=== PATIENT | male | born 1940 | race Caucasian/White ===

== ENCOUNTER 2018-01-13 13:01 | Observation (INO) ==
--- NOTE | 2018-01-13 14:28 | Emergency Department Note ---
Disposition Clinical Impression: Jaundice Disposition: Admitted As Inpatient Condition: Fair Time of Disposition: 15:44 General Adult HPI - General Chief complaint: ED Abdominal Pain Stated complaint: Jaundice Time Seen by Provider: 01/13/18 13:44 Source: patient, family Mode of arrival: ambulatory Limitations: no limitations Nursing Notes Reviewed: Yes Vital Signs Reviewed: Yes - History of Present Illness HPI Narrative: 77yo male with past medical history of hypertension hyperlipidemia presented to [facility] complaining of itching and jaundice. Reported that he has been itching and jaundiced for about a week. He went to [facility] on 01/10/2018 where they tested for hepatitis and and they discharged him to follow up with PCP. He then went back today and a CT demonstrated no biliary obstruction or liver mass, gallbladder was collapsed limiting the assessment, minimal haziness without stones. He was at the urgent care when they recommended that he immediately go to [facility] for concerns of biliary stone. He noted darker orange colored urine and more pale stool for about 2 months. He denies fever, chills, abdominal pain chest pain, shortness of breath, nausea, vomiting, dysuria. He denies alcohol use. Pain Scale: 0 - Related Data Allergies Allergy/AdvReac Type Severity Reaction Status Date / Time No Known Allergies Allergy Verified 01/13/18 13:53 All systems ED: reviewed and negative except as stated. Review of Systems: As Per HPI Constitutional: Denies: fever, chills, weakness Eyes: Denies: vision change Cardiovascular: Denies: chest pain, palpitations Respiratory: Denies: cough, dyspnea, wheezes Gastrointestinal: Denies: abdominal pain, nausea, vomiting, diarrhea, hematemesis, melena, hematochezia Genitourinary: Reports: other (Dark Boone urine) Musculoskeletal: Denies: back pain Integumentary: Reports: lesions (Excoriated lesions on anterior chest and bilateral shoulders), pruritus Neurological: Denies: headache, weakness, numbness Psychiatric: Denies: anxiety Endocrine: Denies: fatigue Hematological/Lymphatic: Denies: easy bleeding Past Medical History - Past Medical History Attestation: Yes The following information was validated with the patient. Source: patient Medical history: Reports: hyperlipidemia, hypertension Surgical history: Reports: appendectomy Psychiatric history: Reports: no psych history - Social History Smoking Status: Former smoker Smokeless Tobacco Status: No Alcohol use: Reports: none Drug use: Reports: none Physical Exam - General Limitations: no limitations General appearance: alert, in no apparent distress - Head Head exam: atraumatic, normocephalic - Eye Eye exam: Present: normal appearance - Neck Neck exam: Present: normal inspection - Chest Chest inspection: Present: other (Excoriated lesions on anterior chest) - Respiratory Respiratory exam: Present: normal lung sounds bilaterally. Absent: respiratory distress, wheezes - Cardiovascular Cardiovascular exam: Present: regular rate, normal rhythm - Abdominal Exam Abdominal exam: Present: soft, Non-Tender, normal bowel sounds. Absent: guarding, rebound - Extremities Exam Extremities exam: Present: normal inspection. Absent: tenderness - Neurological Exam Neurological exam: Present: alert, oriented X3 - Psychiatric Psychiatric exam: Present: normal affect, normal mood - Skin Skin exam: Present: dry, intact, other (Excoriated lesions on anterior chest and bilateral shoulders) Course Course Narrative: 77yo male with past medical history of hypertension hyperlipidemia presented to [facility] complaining of itching and jaundice. He has had the itching and jaundice for a week now. He has noticed paler stool and darker urine for about a couple months. Denies fever, chills, abdominal pain, chest pain, shortness of breath, nausea, vomiting. He has been seeing evaluated at [facility] where CT demonstrated no biliary obstruction or stones in the gallbladder, however they recommended that he come to [facility] due to continue concerns of biliary obstruction. Differential includes common bile duct obstruction, cholangitis, hepatitis, primary sclerosing cholangitis. Will order a CBC, CMP, lipase, ammonia, hepatic panel, urinalysis. Will consult G.I. once labs results. Vital Signs Temperature 97.7 F 01/13/18 13:06 Pulse Rate 73 01/13/18 13:06 Respiratory Rate 16 01/13/18 13:06 Blood Pressure 141/74 01/13/18 13:06 O2 Sat by Pulse Oximetry 97 01/13/18 13:06 Temperature 97.7 F 01/13/18 13:48 Pulse Rate 73 01/13/18 13:48 Respiratory Rate 16 01/13/18 13:48 Blood Pressure 141/74 01/13/18 13:48 O2 Sat by Pulse Oximetry 97 01/13/18 13:48 Oxygen Delivery Oxygen Delivery Room Air Medical Decision Making - MDM Narrative Medical decision making narrative: 77yo male with past medical history of hypertension hyperlipidemia presented to [facility] complaining of itching and jaundice. Reported that he has been itching and jaundiced for about a week. He went to [facility] on 01/10/2018 where they tested for hepatitis and and they discharged him to follow up with PCP. He then went back today and a CT demonstrated no biliary obstruction or liver mass, gallbladder was collapsed limiting the assessment, minimal haziness without stones. He was at the urgent care when they recommended that he immediately go to [facility] for concerns of biliary stone. He noted darker orange colored urine and more pale stool for about 2 months. He denies fever, chills, abdominal pain chest pain, shortness of breath, nausea, vomiting, dysuria. He denies alcohol use. WBC within normal limits. Total Anirudh, direct Bili, indirect Bilirubin, alkaline phosphatase, AST, ALT, lipase all elevated. Moderate bilirubin and urinalysis. Will give him Solu-Medrol for symptomatic relief. Dr. Joseph of gastroenterology was consulted and recommended MRCP. He believes this to be cholestasis. He asked that we admit to the hospitalist for the MRCP and further evaluation. The hospitalist Dr. Inman was contacted and accepted admission. The patient and family were agreeable to the plan. - Medical Records Medical records reviewed: Yes I reviewed the patient's medical records. - Lab Data Lab results reviewed: Yes I reviewed the patient's lab results. - Radiology Data Radiology results reviewed: Yes I reviewed the patient's radiology results. Critical Care Time Critical Care Time: No
[2018-01-13 14:47] LABS: Bilirubin,Urine Moderate (Negative); Blood,Urine Negative (Negative); Clarity,Urine Cloudy (Clear); Color,Urine Dark Yellow (Yellow); Glucose,Urine (UA) Normal (Normal); Ketones,Urine Negative (Negative); Leukocyte Esterase,Urine Negative (Negative); Nitrite,Urine Negative (Negative); Protein,Urine Negative (Neg-Trace); Specific Gravity,Urine 1.012 (1.010-1.025); Urobilinogen,Urine Normal (Normal)
[2018-01-13 14:51] LABS: Bacteria,Urine None Seen per hpf (None-Few); Hyaline Casts,Urine None Seen per lpf (None-Few); RBC,Urine 0-3 per hpf (0-3); Squamous Epithelial Cell,Urine None Seen per lpf (None-Few); WBC,Urine 0-3 per hpf (0-3)
[2018-01-13 14:59] LABS: Basophils % 0.8 %; Eosinophils # 0.2 K/mcL (0.0-0.6); Eosinophils % 3.5 %; Hemoglobin 13.7 g/dL (12.9-16.9); Immature Granulocytes % 0.6 % (0-4); Lymphocytes # 1.3 K/mcL (0.6-4.6); Lymphocytes % 24.4 %; Mean Corpuscular HGB Conc 33.4 g/dL (31.6-35.5); Mean Corpuscular Volume 86.7 fL (83.0-100.0); Mean Platelet Volume 12.3 fL (9.4-12.4); Monocytes # 0.7 K/mcL (0.0-1.3); Monocytes % 14.1 %; Neutrophils # 2.9 K/mcL (1.6-8.9); Platelet Count 202 K/mcL (140-400); Red Blood Count 4.73 M/mcL (4.19-5.50); Red Cell Distribution Width 16.8 % (11.5-14.5); Segmented Neutrophils % 56.6 %
[2018-01-13 15:09] LABS: Prothrombin Time 10.7 Seconds (9.4-12.1)
[2018-01-13 15:16] LABS: Albumin/Globulin Ratio 1.4 (1.1-2.2); Bilirubin,Direct 8.6 mg/dL (0.0-0.2); Bilirubin,Indirect 4.2 mg/dL (0.0-1.2); Bilirubin,Total 12.8 mg/dL (0.3-1.0); Calcium 9.4 mg/dL (8.6-10.3); Globulin 2.8 g/dL (2.4-3.5); Potassium 3.7 mEq/L (3.5-5.1); Total Protein 6.8 g/dL (6.4-8.9)
[2018-01-13 15:18] LABS: Amorphous Sediment,Urine Few (Few)
--- NOTE | 2018-01-13 15:43 | Emergency Department Note ---
Disposition Clinical Impression: Cholestasis, Hyperbilirubinemia, Jaundice Disposition: Admitted As Inpatient Condition: Fair Forms: ED Satisfaction Letter, Work/School Release General Adult HPI - General Chief complaint: ED Abdominal Pain Stated complaint: Jaundice Time Seen by Provider: 01/13/18 13:44 Source: patient, family Mode of arrival: ambulatory Limitations: no limitations - History of Present Illness Pain Scale: 0 - Related Data Allergies Allergy/AdvReac Type Severity Reaction Status Date / Time No Known Allergies Allergy Verified 01/13/18 13:53 Constitutional: Denies: fever, chills, weakness Eyes: Denies: vision change Cardiovascular: Denies: chest pain, palpitations Respiratory: Denies: cough, dyspnea, wheezes Gastrointestinal: Denies: abdominal pain, nausea, vomiting, diarrhea, hematemesis, melena, hematochezia Genitourinary: Reports: other (Dark Beckham urine) Musculoskeletal: Denies: back pain Integumentary: Reports: lesions (Excoriated lesions on anterior chest and bilateral shoulders), pruritus Neurological: Denies: headache, weakness, numbness Psychiatric: Denies: anxiety Endocrine: Denies: fatigue Hematological/Lymphatic: Denies: easy bleeding Past Medical History - Past Medical History Medical history: Reports: hyperlipidemia, hypertension Surgical history: Reports: appendectomy Psychiatric history: Reports: no psych history - Social History Smoking Status: Former smoker Smokeless Tobacco Status: No Alcohol use: Reports: none Drug use: Reports: none Physical Exam - General Limitations: no limitations General appearance: alert, in no apparent distress Course Vital Signs Temperature 97.7 F 01/13/18 13:06 Pulse Rate 73 01/13/18 13:06 Respiratory Rate 16 01/13/18 13:06 Blood Pressure 141/74 01/13/18 13:06 O2 Sat by Pulse Oximetry 97 01/13/18 13:06 Temperature 97.7 F 01/13/18 13:48 Pulse Rate 67 01/13/18 14:44 Respiratory Rate 20 01/13/18 14:44 Blood Pressure 150/78 01/13/18 14:44 O2 Sat by Pulse Oximetry 97 01/13/18 14:44 Oxygen Delivery Oxygen Delivery Room Air Medical Decision Making - Lab Data Result diagrams: 01/13/18 14:40 01/13/18 14:40 Lab Results 06/25/18 06/25/18 06/25/18 Range/Units 14:32 14:40 14:40 WBC 5.2 (4.3-11.1) K/mcL RBC 4.73 (4.19-5.50) M/mcL Hgb 13.7 (12.9-16.9) g/dL Hct 41.0 (37.5-50.1) % MCV 86.7 (83.0-100.0) fL MCH 29.0 (28.0-33.3) pg MCHC 33.4 (31.6-35.5) g/dL RDW 16.8 H (11.5-14.5) % Plt Count 202 (140-400) K/mcL MPV 12.3 (9.4-12.4) fL Immature Gran % 0.6 (0-4) % Seg Neutrophils % 56.6 % Lymphocytes % 24.4 % Monocytes % 14.1 % Eosinophils % 3.5 % Basophils % 0.8 % Neutrophils # 2.9 (1.6-8.9) K/mcL Lymphocytes # 1.3 (0.6-4.6) K/mcL Monocytes # 0.7 (0.0-1.3) K/mcL Eosinophils # 0.2 (0.0-0.6) K/mcL Basophils # 0.0 (0.0-0.2) K/mcL PT (9.4-12.1) Seconds INR Sodium 139 (136-145) mEq/L Potassium 3.7 (3.5-5.1) mEq/L Chloride 106 (98-107) mEq/L Carbon Dioxide 25 (23-29) mEq/L BUN 25 H (8-23) mg/dL Creatinine 1.57 H (0.70-1.30) mg/dL Est GFR ( Amer) 52 L (> 60) Est GFR (Non-Af Amer) 43 L (> 60) BUN/Creatinine Ratio 16 (6-26) Glucose 109 H (70-105) mg/dL Calculated Osmolality 293 (280-300) Calcium 9.4 (8.6-10.3) mg/dL Total Bilirubin 12.8 H (0.3-1.0) mg/dL Direct Bilirubin 8.6 H (0.0-0.2) mg/dL Indirect Bilirubin 4.2 H (0.0-1.2) mg/dL AST 53 H (13-39) Units/L ALT 103 H (7-52) Units/L Alkaline Phosphatase 427 H (34-104) Units/L Ammonia (16-53) mcmol/L Serum Total Protein 6.8 (6.4-8.9) g/dL Albumin 4.0 (3.5-5.7) g/dL Globulin 2.8 (2.4-3.5) g/dL Albumin/Globulin Ratio 1.4 (1.1-2.2) Lipase 105 H (11-82) Units/L Urine Color Dark Yellow (Yellow) Urine Clarity Cloudy A (Clear) Urine pH 6.0 (5.0-8.0) pH Units Ur Specific Edwards 1.012 (1.010-1.025) Urine Protein Negative (Neg-Trace) mg/dL Urine Glucose (UA) Normal (Normal) mg/dL Urine Ketones Negative (Negative) mg/dL Urine Blood Negative (Negative) Urine Nitrite Negative (Negative) Urine Bilirubin Moderate H (Negative) Urine Urobilinogen Normal (Normal) mg/dL Ur Leukocyte Esterase Negative (Negative) Urine Microscopic RBC 0-3 (0-3) per hpf Urine Microscopic WBC 0-3 (0-3) per hpf Ur Squamous Epith Cells None Seen (None-Few) per lpf Amorphous Sediment Few (Few) Urine Bacteria None Seen (None-Few) per hpf Hyaline Casts None Seen (None-Few) per lpf Ur Culture Indicated? NO (NO) 01/13/18 01/13/18 Range/Units 14:40 14:40 WBC (4.3-11.1) K/mcL RBC (4.19-5.50) M/mcL Hgb (12.9-16.9) g/dL Hct (37.5-50.1) % MCV (83.0-100.0) fL MCH (28.0-33.3) pg MCHC (31.6-35.5) g/dL RDW (11.5-14.5) % Plt Count (140-400) K/mcL MPV (9.4-12.4) fL Immature Gran % (0-4) % Seg Neutrophils % % Lymphocytes % % Monocytes % % Eosinophils % % Basophils % % Neutrophils # (1.6-8.9) K/mcL Lymphocytes # (0.6-4.6) K/mcL Monocytes # (0.0-1.3) K/mcL Eosinophils # (0.0-0.6) K/mcL Basophils # (0.0-0.2) K/mcL PT 10.7 (9.4-12.1) Seconds INR 1.0 Sodium (136-145) mEq/L Potassium (3.5-5.1) mEq/L Chloride (98-107) mEq/L Carbon Dioxide (23-29) mEq/L BUN (8-23) mg/dL Creatinine (0.70-1.30) mg/dL Est GFR ( Amer) (> 60) Est GFR (Non-Af Amer) (> 60) BUN/Creatinine Ratio (6-26) Glucose (70-105) mg/dL Calculated Osmolality (280-300) Calcium (8.6-10.3) mg/dL Total Bilirubin (0.3-1.0) mg/dL Direct Bilirubin (0.0-0.2) mg/dL Indirect Bilirubin (0.0-1.2) mg/dL AST (13-39) Units/L ALT (7-52) Units/L Alkaline Phosphatase (34-104) Units/L Ammonia 34 (16-53) mcmol/L Serum Total Protein (6.4-8.9) g/dL Albumin (3.5-5.7) g/dL Globulin (2.4-3.5) g/dL Albumin/Globulin Ratio (1.1-2.2) Lipase (11-82) Units/L Urine Color (Yellow) Urine Clarity (Clear) Urine pH (5.0-8.0) pH Units Ur Specific Edwards (1.010-1.025) Urine Protein (Neg-Trace) mg/dL Urine Glucose (UA) (Normal) mg/dL Urine Ketones (Negative) mg/dL Urine Blood (Negative) Urine Nitrite (Negative) Urine Bilirubin (Negative) Urine Urobilinogen (Normal) mg/dL Ur Leukocyte Esterase (Negative) Urine Microscopic RBC (0-3) per hpf Urine Microscopic WBC (0-3) per hpf Ur Squamous Epith Cells (None-Few) per lpf Amorphous Sediment (Few) Urine Bacteria (None-Few) per hpf Hyaline Casts (None-Few) per lpf Ur Culture Indicated? (NO) Attestation Statement - Attestation Attestation: I examined this patient and my medical decision-making was reviewed with the Resident Physician. I agree with the documented findings, disposition and treatment plan as described except to the extent set forth below. 77-year-old male presented to the ER for painless jaundice. Patient [facility] for the same complaint and head CT scan done today that was unremarkable for any acute liver pathology. We rechecked some labs here which does show some hyperbilirubinemia. We consulted with GI who felt this was more cholestasis. He would like the patient set up for an MRCP. Patient will be admitted to the hospitalist and a consult to GI for this procedure. He is hemodynamically stable.. Alert and oriented.
[2018-01-13] MEDS ORDERED: methylPREDNISolone 125 MG/2 ML VIAL IVP ONE (15:46)
[2018-01-13] MEDS ORDERED: Naloxone 0.4 MG/ML INJ IVP PRN (16:53)
[2018-01-13] MEDS ORDERED: *HR* LORazepam 0.5 MG TABLET PO PRN (17:00)
[2018-01-13] MEDS ORDERED: hydrOXYzine pamoate 25 MG CAPSULE PO PRN (17:00)
[2018-01-13] MEDS: *HR* Heparin 5,000 UNIT/ML VIAL SQ SCH (18:04)
[2018-01-13] MEDS: 0.9 % Sodium Chloride 1,000 ML IVC SCH (18:08)
--- NOTE | 2018-01-13 18:12 | Internal Med History&Physical ---
Date of Encounter: 01/13/18 Time of Encounter: 16:05 Internal Medicine - H&P: HPI Chief complaint: pruritus; jaundice Admitted From: Emergency Dept Plans for Post Hospital Care: Home History of present illness: Mr. Torrez is a 77 year old male who presents with complaints of pruritus and jaundice which started 8 days ago, He was seen in ER, then urgent care, then PCP locally in [facility]. He presents now to our ER for evaluaiton. He and brought paper work from work-up at [facility]. CT scan did not show any pancreatic mass or GB obstruction. He denies any abdominal pain, nausea, vomiting, diarrhea, or any GI bleeding. He denies any alcohol intake for last 20 years. He states he drank heavy alcohol in the past, l but he quit 20 years ago. He denies any Tylenol use, but he does use ibuprofen regularly. He denies any recent ill contacts or any history of hepatitis. Of note, he had hepatitis panel performed at [facility], and it was negative for hepatitis A, B, and C. He does take Pravachol for his cholesterol and has been on this for many years. He denies any prior issues with Pravachol. Past Med Surg Social Fam HX - Past Medical History Attestation: Yes The following information was validated with the patient. Source: patient, old records reviewed, obtained from family Medical history: hyperlipidemia, hypertension Psychiatric history: no psych history - Past Surgical History Surgical History: appendectomy Additional surgical history: hemhorroid sx - Social History Smoking Status: Former smoker Smokeless Tobacco Status: No Alcohol use: none Drug use: none Current living situation: Home, With Family Activity Level: Independent ambulation Recent Out of Country Travel Within the Last 8 Weeks: No - Family History Mother Living Status: Hx Family GI Disorders: No Father Living Status: Hx Family GI Disorders: No Internal Medicine - H&P: Meds Ibuprofen [Motrin Ib] 400 mg PO DAILY PRN 01/13/18 [History] LORazepam [Ativan] 0.5 mg PO TID PRN 01/13/18 [History] Lisinopril [Zestril] 10 mg PO DAILY 01/13/18 [History] Pravastatin Sodium [Pravastatin Sodium] 10 mg PO DAILY 01/13/18 [History] hydrOXYzine HCl [Hydroxyzine HCl] 25 mg PO BID PRN 01/13/18 [History] 3 Allergy/AdvReac Type Severity Reaction Status Date / Time No Known Allergies Allergy Verified 01/13/18 13:53 - Constitutional Constitutional: no chills, no fever(s), no night sweats - EENT Eyes: no blurry vision, no change in vision Ears: no ear pain, no tinnitus Nose, mouth and throat: no nasal congestion, no sore throat - Cardiovascular Cardiovascular ROS IM: no chest pain, no dyspnea, no dyspnea on exertion - Respiratory Respiratory: no cough, no hemoptysis, no dyspnea on exertion, no wheezing - Gastrointestinal Gastrointestinal: change in stool character, heartburn, no abdominal pain, no diarrhea, no hematemesis, no hematochezia, no melena, no nausea, no vomiting - Genitourinary Genitourinary ROS male: no dysuria, no flank pain, no hematuria - Musculoskeletal Musculoskeletal ROS IM: no muscle cramps, no muscle weakness, no myalgias - Integumentary Integumentary IM: pruritus, rash, jaundice - Neurological Neurological ROS: no dizziness, no focal weakness, no frequent falls, no headache(s) - Psychiatric Psychiatric: no anxiety, no depression - Endocrine Endocrine IM: no polydipsia, no polyuria - Hematologic/Lymphatic Hematologic/Lymphatic: no lymphadenopathy - Allergic/Immunologic Allergic/Immunologic: no wheezing, no GI upset with certain foods - Constitutional Vitals: Temp Pulse Resp BP Pulse Ox 97.7 F 62 18 151/68 96 01/13/18 17:40 01/13/18 17:40 01/13/18 17:40 01/13/18 17:40 01/13/18 17:40 General appearance: Present: cooperative, mild distress (due to itching), A&O X 3, pleasant, answers questions appropriately - Head Head exam: Present: normal inspection - Eye Eye exam: Present: EOMI, PERRL, scleral icterus Pupils: Present: normal accommodation - ENT ENT exam: Present: normal exam, normal oropharynx - Neck Neck exam general surgery: Present: full ROM, supple. Absent: lymphadenopathy, tenderness, nuchal rigidity, thyromegaly - Respiratory Respiratory exam: Present: CTAB. Absent: chest wall tenderness, rales, respiratory distress, rhonchi, wheezes - Cardiovascular Cardiovascular exam: Present: RRR, +S1, +S2. Absent: diastolic murmur, systolic murmur - GI/Abdominal GI/Abdominal exam: Present: normal bowel sounds, soft. Absent: guarding, hepatomegaly, mass, rebound, splenomegaly, tenderness - Extremities Exam Extremities exam: Present: full ROM, normal capillary refill, warm, radial pulses palpable and symmetrical. Absent: calf tenderness, joint swelling, pedal edema, tenderness - Back Exam Back exam: Absent: CVA tenderness (L), CVA tenderness (R) - Neurological Exam Neurological exam: Present: alert, CN II-XII intact, oriented X3, no focal deficits - Psychiatric Psychiatric exam: Present: normal affect, normal mood - Skin Skin exam: Present: dry, rash (puriritc lesions), warm Internal Med - H&P Results - Labs CBC & Chem 7: 01/13/18 14:40 01/13/18 14:40 Labs: I reviewed labs from [facility] they include the following: Acute hepatitis panel -- negative for hepatitis A, B, C Total bilirubin 11.8 AST 93 ALT [address] scan of abdomen and pelvis reveals no biliary obstruction or mass of the pancreas, liver, or gallbladder. - Assessment and plan (1) Obstructive jaundice Current Visit: Yes Status: Acute Assessment and plan: 1. I personally discussed with Dr. Joseph. 2. Will order MRI abdomen/pancreas and RUQ ultrasound. 3. Dr. Joseph to see in consult and likely proceed with endocscopy, possible ERCP. 4. Stop Pravachol. 5. Trend LFT's. 6. Will order acteminophen and salicylate levels. (2) Chronic kidney disease Current Visit: Yes Status: Chronic Assessment and plan: 1. Stop Lisinopril and monitor renal function. 2. Will hydrate gingerly and follow I/O. 3. Consult nephrology if function declines from baseline. Qualifiers: Chronic kidney disease stage: stage 3 (moderate) Qualified Code(s): N18.3 - Chronic kidney disease, stage 3 (moderate) (3) DVT prophylaxis Current Visit: Yes Status: Acute Assessment and plan: 1. Heparin SQ.
[2018-01-13 18:55] LABS: % Iron Saturation 39 % (20-55); Acetaminophen < 10 mcg/mL (10-20); Iron 131 mcg/dL (65-175); Salicylate 2.9 mg/dL (15.0-30.0); Transferrin 242 mg/dL (203-362)
[2018-01-14 05:11] LABS: Hematocrit 41.3 % (37.5-50.1); Hemoglobin 13.9 g/dL (12.9-16.9); Immature Granulocytes % 0.2 % (0-4); Lymphocytes # 0.5 K/mcL (0.6-4.6); Lymphocytes % 12.1 %; Mean Corpuscular HGB Conc 33.7 g/dL (31.6-35.5); Mean Corpuscular Hemoglobin 28.2 pg (28.0-33.3); Mean Corpuscular Volume 83.8 fL (83.0-100.0); Mean Platelet Volume 12.6 fL (9.4-12.4); Monocytes # 0.1 K/mcL (0.0-1.3); Monocytes % 1.1 %; Neutrophils # 3.8 K/mcL (1.6-8.9); Platelet Count 239 K/mcL (140-400); Red Blood Count 4.93 M/mcL (4.19-5.50); Red Cell Distribution Width 16.5 % (11.5-14.5); Segmented Neutrophils % 86.6 %
[2018-01-14 05:16] LABS: INR 1.1; Prothrombin Time 11.3 Seconds (9.4-12.1)
[2018-01-14 05:19] LABS: Activated Partial Thrombo Time 32.6 Seconds (26.0-36.0)
[2018-01-14 05:41] LABS: Albumin 3.7 g/dL (3.5-5.7); Albumin/Globulin Ratio 1.3 (1.1-2.2); Bilirubin,Total 14.1 mg/dL (0.3-1.0); Calcium 9.3 mg/dL (8.6-10.3); Chol/HDL Ratio 22.3 (0-4.9); Globulin 2.9 g/dL (2.4-3.5); Magnesium 1.7 mg/dL (1.6-2.6); Potassium 4.4 mEq/L (3.5-5.1); Total Protein 6.6 g/dL (6.4-8.9)
[2018-01-14] MEDS: *HR* Heparin 5,000 UNIT/ML VIAL SQ SCH ×2 (06:04→15:47)
[2018-01-14] MEDS: 0.9 % Sodium Chloride 1,000 ML IVC SCH (07:51)
[2018-01-14] MEDS ORDERED: *HR* Propofol 200 MG/20 ML VIAL IVP ONE (10:45)
--- NOTE | 2018-01-14 11:11 | Anesthesia Evaluation PreOp ---
Date of Encounter: 01/14/18 Time of Encounter: 11:10 - Past History Planned Operation: ERCP Cardiac History: HTN, Hyperlipidemia Pulmonary History: Denies Any Significant HX [employer] History: Denies Any Significant HX Other Medical History: Denies Any Significant HX, Hepatic (Admitted to hospital with jaundice), GERD (Occasional) Anesthesia History: No Prior Anesthetic Complications, Past Anesthesia Alcohol Use: none Drug use: none Medications and Allergies Ibuprofen [Motrin Ib] 400 mg PO DAILY PRN 01/13/18 [History] LORazepam [Ativan] 0.5 mg PO TID PRN 01/13/18 [History] Lisinopril [Zestril] 10 mg PO DAILY 01/13/18 [History] Pravastatin Sodium [Pravastatin Sodium] 10 mg PO DAILY 01/13/18 [History] hydrOXYzine HCl [Hydroxyzine HCl] 25 mg PO BID PRN 01/13/18 [History] 3 Allergy/AdvReac Type Severity Reaction Status Date / Time No Known Allergies Allergy Verified 01/13/18 13:53 - Meds/Allergy Pre-op Review Medications Reviewed: Yes Allergies Reviewed: Yes Beta Blockers on Current Med List: No Anesthesia Results - Labs 01/14/18 04:45 01/14/18 04:45 - Imaging EKG: pending Anesthesia Exam Selected Entries 01/14/18 07:20 01/14/18 11:00 Temperature 97.9 F Pulse Rate 73 Respiratory Rate 18 Blood Pressure 140/79 O2 Sat by Pulse Oximetry 98 Weight: 69 kg NPO (# of Hours): over 8 hours - HEENT Pupil (Motor): Pupils equal Teeth: Edentulous Oral Opening: Greater than 3 - Cardiac Rhythm: Regular - Pulmonary Breath Sounds: bilateral Clear Anesthesia Assess/Plan ASA Score: 3 Modified Jose Scale for Level of Consciousness: Cooperative, oriented, and tranquil Anesthetic Plan: General Monitoring Plan: Standard Monitors Recovery Plan: PACU (Discussed GA, risks. Agreed to proceed.)
[2018-01-14] MEDS ORDERED: Ringers Solution, Lactated 1,000 ML IVC SCH (11:15)
[2018-01-14] MEDS ORDERED: Dexamethasone 4 MG/ML VIAL ONE (11:33)
[2018-01-14] MEDS ORDERED: Ondansetron 4 MG/2 ML VIAL ONE (11:33)
[2018-01-14] MEDS ORDERED: Lidocaine -MPF 2% 2 ML VIAL ONE (11:34)
[2018-01-14] MEDS ORDERED: Lidocaine -MPF 4% 5 ML AMPUL ONE (11:34)
[2018-01-14] MEDS ORDERED: *HR* Magnesium Sulfate 1 GM/2 ML VIAL ONE (11:50)
--- NOTE | 2018-01-14 12:32 | Gastroenterology Consult Note ---
Date of Encounter: 01/14/18 Time of Encounter: 10:40 - Assessment and plan (1) Hyperbilirubinemia Current Visit: Yes Status: Acute Assessment and plan: MRi shows stricture in CBD. Will proceed with EUS/ERCP to rule out mass, stricture, choledocholithiasis. Pt and his family are informed of the risks of pancreatitis, bleeding, and infection and they verbalize understanding. (2) Obstructive jaundice Current Visit: Yes Status: Acute - Time Spent With Patient Total time spent is greater than 50% in coordination of care (as documented) at patient's floor/unit and/or counseling patient: GI History of Present Illness - Data of Consult Patient: new to practice Consult date: 01/14/18 Requesting Physician: Michael Hong DO - Consult Narrative Reason for consult: jaundice History of present illness: Mr. Torrez is a 78 year old male Mr. Torrez is a 77 year old male who presents with complaints of pruritus and jaundice which started 8 days ago, He was seen in ER, then urgent care, then PCP locally in [facility]. He presents now to our ER for evaluation. He and brought paper work from work-up at [facility]. CT scan did not show any pancreatic mass or GB obstruction. He denies any abdominal pain, nausea, vomiting, diarrhea, or any GI bleeding. He denies any alcohol intake for last 20 years. 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 He denies any Tylenol use, but he does use ibuprofen regularly. He denies abdominal pain, nausea, vomiting, diarrhea or constipation. He denies any recent ill contacts or any history of hepatitis. Of note, he had hepatitis panel performed at [place], and it was negative for hepatitis A, B, and C. He does take Pravachol for his cholesterol and has been on this for many years. He denies any prior issues with Pravachol. MRI shows focal wall thickening and narrowing in the mid common duct which is suspicious for stricture or malignancy, no choledocholithiasis, incidentally noted pancreatic devisum. Total bili 14.1 AST 46 ALT 90, alkaline phosphatase 437, triglycerides 396, BCs 4.4, hemoglobin 13.9, platelet count 239, INR 1.1. Past Med Surg Social Fam HX - Past Medical History Medical history: hyperlipidemia, hypertension Psychiatric history: no psych history - Past Surgical History Surgical History: appendectomy Additional surgical history: hemhorroid sx - Social History Smoking Status: Former smoker Smokeless Tobacco Status: No Alcohol use: none Drug use: none - Family History Mother Living Status: Hx Family GI Disorders: No Father Living Status: Hx Family GI Disorders: No Review of Systems: GI: as per [facility] GENERAL: denies fever, or some chills EYES: denies yellow discoloration ENT: denies pain with swallowing or difficulty swallowing CARDIO: denies chest pain, palpitations RESP: No Shortness of breath with exertion : denies change in color of urine NEURO: denies any weakness HEME: Denies any bruising MS: denies joint pain, joint swelling or back pain. DERM: denies rash or itching PSYCH: Denies history of anxiety or depression - Constitutional Vitals: Temp Pulse Resp BP Pulse Ox 97.9 F 73 18 140/79 98 01/14/18 07:20 01/14/18 11:00 01/14/18 11:00 01/14/18 11:00 01/14/18 11:00 Exam: CONSTITUTIONAL:~alert, no acute distress.~HEAD:~normocephalic.~EYES:~jaundice.~ NECK:~no obvious swelling.~HEART:~regular rate and rhythm, no murmurs.~LUNGS:~ bilateral good air entry.~ABDOMEN:~non distended, soft, non tender, no masses palpable, no organomegaly.~RECTAL EXAM:~Deferred.~EXTREMITIES:~no clubbing, cyanosis or edema.~SKIN:~no stigmata of chronic liver disease.~NEUROLOGIC:~no obvious focal defect.~~~~ Results - Labs CBC & Chem 7: 01/14/18 04:45 01/14/18 04:45 Labs: Last Result Calcium 9.3 mg/dL (8.6-10.3) 01/14/18 04:45 Iron 131 mcg/dL (65-175) 01/13/18 17:44 % Saturation 39 % (20-55) 01/13/18 17:44 Transferrin 242 mg/dL (203-362) 01/13/18 17:44 Triglycerides 396 mg/dL (< 150) H 01/14/18 04:45 Salicylates 2.9 mg/dL (15.0-30.0) L 01/13/18 17:44 Entire Visit Hgb 13.9 g/dL (12.9-16.9) 01/14/18 04:45 Hct 41.3 % (37.5-50.1) 01/14/18 04:45 PT 11.3 Seconds (9.4-12.1) 01/14/18 04:45 Total Bilirubin 14.1 mg/dL (0.3-1.0) H 01/14/18 04:45 AST 46 Units/L (13-39) H 01/14/18 04:45 ALT 90 Units/L (7-52) H 01/14/18 04:45 Ammonia 34 mcmol/L (16-53) 01/13/18 14:40 Lipase 105 Units/L (11-82) H 01/13/18 14:40 Acetaminophen < 10 mcg/mL (10-20) L 01/13/18 17:44 - ABG ABG results: PT/INR, D-dimer PT 11.3 Seconds (9.4-12.1) 01/14/18 04:45 - Impressions Impressions Gallbladder Ultrasound 01/14/18 09:00 IMPRESSION: The gallbladder is not well seen and is likely contracted. There is no evidence for stone seen within the gallbladder fossa and no pericholecystic fluid. The narrowing in the common bile duct seen on the patient's MRI is not apparent on ultrasound. D/ / 01/14/2018 10:20:06 Juan Carlos Turner MD / Paty Guillen Interpreting Provider: Juan Carlos Turner MD Consult Discharge Plan - Plan Referrals: NONE,PCP [Primary Care Provider] -
[2018-01-14] MEDS ORDERED: Indomethacin 50 MG SUPP.RECT RC ONE (13:31)
[2018-01-14] MEDS: *HR* Labetalol 100 MG/20 ML MDV IVP PRN ×3 (14:04→14:23)
--- NOTE | 2018-01-14 16:16 | Electrocardiograph Report ---
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
--- NOTE | 2018-01-14 17:33 | Internal Med Progress Note ---
Date of Encounter: 01/14/18 Time of Encounter: 16:00 - Assessment and plan (1) Common bile duct (CBD) stricture Current Visit: Yes Status: Acute Assessment and plan: Pt is s/p ERCP and stent. He feels OK and is hungry Recheck labs tomorrow. Probable d/c tomorrow. (2) Obstructive jaundice Current Visit: Yes Status: Acute Assessment and plan: Related to CBD stricture. S/P stent. Recheck labs (3) Chronic kidney disease Current Visit: Yes Status: Chronic Assessment and plan: Creatinine slightly better than on admit. Expect is baseline. Qualifiers: Chronic kidney disease stage: stage 3 (moderate) Qualified Code(s): N18.3 - Chronic kidney disease, stage 3 (moderate) (4) Hyperglycemia Current Visit: Yes Status: Acute Assessment and plan: Check HgbA1C tomorrow. (5) DVT prophylaxis Current Visit: Yes Status: Acute - Time Spent With Patient Total time spent is greater than 50% in coordination of care (as documented) at patient's floor/unit and/or counseling patient: - Subjective Interval history: Mr Torrez is currently in observation due to jaundice. He is now s/p ERCP. He remains moderate to high risk. Mr Torrez just returned from ERCP. He appears to have had a stricture and had stent placed. Currently he denies pain. Feels hungry. No fever or chills. Says his itching is beginning to improve. Family at bedside and updated on treatment. - Constitutional Vitals: Temp Pulse Resp BP Pulse Ox 97.6 F 74 16 146/78 95 01/14/18 17:00 01/14/18 17:00 01/14/18 17:00 01/14/18 17:00 01/14/18 17:00 General appearance: Present: cooperative, A&O X 3, pleasant, answers questions appropriately - Head Head exam: Present: normocephalic - Eye Eye exam: Present: conjuntiva pink - ENT ENT exam: Present: mucous membranes moist - Respiratory Respiratory exam: Present: CTAB. Absent: rales, rhonchi, wheezes - Cardiovascular Cardiovascular exam: Present: RRR. Absent: tachycardia - GI/Abdominal GI/Abdominal exam: Present: soft. Absent: tenderness - Extremities Exam Extremities exam: Present: warm. Absent: tenderness - Neurological Exam Neurological exam: Present: alert, oriented X3 - Skin Skin exam: Present: warm. Absent: rash Additional comments: Jaundice present. Internal Medicine: Result - Labs CBC & Chem 7: 01/14/18 04:45 01/14/18 04:45 Labs: Short CBC 01/14/18 Range/Units 04:45 WBC 4.4 (4.3-11.1) K/mcL Hgb 13.9 (12.9-16.9) g/dL Hct 41.3 (37.5-50.1) % Plt Count 239 (140-400) K/mcL Neutrophils # 3.8 (1.6-8.9) K/mcL BMP 01/14/18 04:45 Sodium 139 Potassium 4.4 Chloride 107 Carbon Dioxide 19 L BUN 25 H Creatinine 1.43 H Glucose 185 H Calcium 9.3 Liver Function 01/14/18 Range/Units 04:45 Total Bilirubin 14.1 H (0.3-1.0) mg/dL AST 46 H (13-39) Units/L ALT 90 H (7-52) Units/L Alkaline Phosphatase 437 H (34-104) Units/L Albumin 3.7 (3.5-5.7) g/dL - ABG Interpretation ABG results: PT/INR, D-dimer PT 11.3 Seconds (9.4-12.1) 01/14/18 04:45 - Impressions Impressions Cath/Invasive Procedure 01/14/18 00:00 IMPRESSION: ERCP images demonstrating common duct stent placement. Please refer to the procedure report for further details. D/ / Hal Barker MD / Hal Barker MD Interpreting Provider: Hal Barker MD Gallbladder Ultrasound 01/14/18 09:00 IMPRESSION: The gallbladder is not well seen and is likely contracted. There is no evidence for stone seen within the gallbladder fossa and no pericholecystic fluid. The narrowing in the common bile duct seen on the patient's MRI is not apparent on ultrasound. D/ / 01/14/2018 10:20:06 Juan Carlos Turner MD / Paty Guillen Interpreting Provider: Juan Carlos H. Turner, MD Consult Discharge Plan - Plan Referrals: NONE,PCP [Primary Care Provider] -
[2018-01-15] MEDS: *HR* Heparin 5,000 UNIT/ML VIAL SQ SCH (05:12)
[2018-01-15] MEDS: hydrOXYzine pamoate 25 MG CAPSULE PO PRN ×2 (05:13→12:18)
[2018-01-15 06:16] LABS: Hematocrit 35.6 % (37.5-50.1); Mean Corpuscular HGB Conc 33.7 g/dL (31.6-35.5); Mean Corpuscular Hemoglobin 28.4 pg (28.0-33.3); Mean Corpuscular Volume 84.4 fL (83.0-100.0); Mean Platelet Volume 12.6 fL (9.4-12.4); Platelet Count 204 K/mcL (140-400); Red Blood Count 4.22 M/mcL (4.19-5.50)
[2018-01-15 06:37] LABS: Albumin 3.2 g/dL (3.5-5.7); Albumin/Globulin Ratio 1.3 (1.1-2.2); Bilirubin,Direct 8.1 mg/dL (0.0-0.2); Bilirubin,Indirect 5.1 mg/dL (0.0-1.2); Bilirubin,Total 13.2 mg/dL (0.3-1.0); Calcium 8.4 mg/dL (8.6-10.3); Globulin 2.4 g/dL (2.4-3.5); Magnesium 2.2 mg/dL (1.6-2.6); Potassium 4.1 mEq/L (3.5-5.1); Total Protein 5.6 g/dL (6.4-8.9)
[2018-01-15 08:19] LABS: Estimated Average Glucose 123 mg/dl; Hemoglobin A1C 5.9 %
--- NOTE | 2018-01-15 10:22 | Gastroenterology Progress Note ---
Date of Encounter: 01/15/18 Time of Encounter: 09:20 - Assessment and plan (1) Hyperbilirubinemia Current Visit: Yes Status: Acute Assessment and plan: Labs slightly better. S/p ERCP and stent placement. Pt denies pain or nausea. Will follow up with Dr Brewster in the office in 3-4 weeks. Will send outpatient referral to Dr Dunia Grissom at [facility] for possible cholangiocarcinoma. (2) Obstructive jaundice Current Visit: Yes Status: Acute - Time Spent With Patient Total time spent is greater than 50% in coordination of care (as documented) at patient's floor/unit and/or counseling patient: - Subjective Interval history: Mr Torrez is a 78 year old male who is status post ERCP and stent placement for CBD stricture. He states abdomen is sore but denies any RUQ pain. He denies nausea or vomiting. He ate regular diet this morning and did well. He is asking to go home. LFTs slightly improved today. - Constitutional Vitals: Temp Pulse Resp BP Pulse Ox 98.7 F 70 18 118/68 97 01/15/18 07:04 01/15/18 07:04 01/15/18 07:04 01/15/18 07:04 01/15/18 08:00 Exam: CONSTITUTIONAL:~alert, no acute distress.~HEAD:~normocephalic.~EYES:~ jaundice.~ NECK:~no obvious swelling.~HEART:~regular rate and rhythm, no murmurs.~LUNGS:~ bilateral good air entry.~ABDOMEN:~non distended, soft, tender, no masses palpable, no organomegaly.~RECTAL EXAM:~Deferred.~EXTREMITIES:~no clubbing, cyanosis or edema.~SKIN:~no stigmata of chronic liver disease.~NEUROLOGIC:~no obvious focal defect.~~~~ Results - Labs CBC & Chem 7: 01/15/18 05:42 01/15/18 05:42 Labs: Last Result Calcium 8.4 mg/dL (8.6-10.3) L 01/15/18 05:42 Iron 131 mcg/dL (65-175) 01/13/18 17:44 % Saturation 39 % (20-55) 01/13/18 17:44 Transferrin 242 mg/dL (203-362) 01/13/18 17:44 Triglycerides 396 mg/dL (< 150) H 01/14/18 04:45 Salicylates 2.9 mg/dL (15.0-30.0) L 01/13/18 17:44 Entire Visit Hgb 12.0 g/dL (12.9-16.9) L D 01/15/18 05:42 Hct 35.6 % (37.5-50.1) L 01/15/18 05:42 PT 11.3 Seconds (9.4-12.1) 01/14/18 04:45 Total Bilirubin 13.2 mg/dL (0.3-1.0) H 01/15/18 05:42 AST 54 Units/L (13-39) H 01/15/18 05:42 ALT 71 Units/L (7-52) H 01/15/18 05:42 Ammonia 34 mcmol/L (16-53) 01/13/18 14:40 Lipase 105 Units/L (11-82) H 01/13/18 14:40 Acetaminophen < 10 mcg/mL (10-20) L 01/13/18 17:44 - ABG ABG results: PT/INR, D-dimer PT 11.3 Seconds (9.4-12.1) 01/14/18 04:45 - Impressions Impressions Cath/Invasive Procedure 01/14/18 00:00 IMPRESSION: ERCP images demonstrating common duct stent placement. Please refer to the procedure report for further details. D/ / Hal Barker MD / Hal Barker MD Interpreting Provider: Hal Barker MD Gallbladder Ultrasound 01/14/18 09:00 IMPRESSION: The gallbladder is not well seen and is likely contracted. There is no evidence for stone seen within the gallbladder fossa and no pericholecystic fluid. The narrowing in the common bile duct seen on the patient's MRI is not apparent on ultrasound. D/ / 01/14/2018 10:20:06 Juan Carlos Turner MD / Paty Guillen Interpreting Provider: Juan Carlos Turner MD Consult Discharge Plan - Plan Referrals: NONE,PCP [Primary Care Provider] -
[2018-01-15 14:36] VITALS: BP 122/89
--- NOTE | 2018-01-15 14:44 | Discharge Summary ---
- NOTES TO OUTPATIENT PROVIDER Notes to Outpatient Provider: Pt admitted with jaundice. Had ERCP and stricture found. Stent placed. To follow up at [facility]. Orders not resulted at time of discharge: Pending orders 01/13/18 17:44 AFP Tumor Marker Non- Routine KAYLYN IgG KAREN rflx IFA Routine Alpha-1-AT Deficiency Reflex Routine Celiac Disease Reflex [place] Routine F-Actin IgG Reflex Sm Muscle Routine IgG Subclasses 1,2,3,4 Routine MPO/PR3 (ANCA) Antibodies Routine Mitochondrial M2 Antibody, IgG Routine Protein Electrophoresis Routine Saccharomyces cerevisiae Abs Routine 01/13/18 17:45 Ceruloplasmin Routine 01/14/18 13:44 Cytology [PTH] Routine 01/14/18 16:08 Cancer Antigen-GI (CA 19-9) Routine Date of Encounter: 01/15/18 Time of Encounter: 14:30 - Discharge Diagnosis (1) Common bile duct (CBD) stricture Priority: Primary Status: Resolved (2) Obstructive jaundice Priority: Secondary Status: Acute (3) Chronic kidney disease Priority: Secondary Status: Chronic Qualifiers: Chronic kidney disease stage: stage 3 (moderate) Qualified Code(s): N18.3 - Chronic kidney disease, stage 3 (moderate) (4) Hyperglycemia Priority: Secondary Status: Acute Hospital course: Mr. Torrez is a 78 year old male presented to ED with pruritis and jaundice. He was evaluated and admitted for further work up. Mr Torrez was admitted to med surg. He was seen by GI and went for EUS and ERCP. CBD stricture found and dilated and stent placed. Brushings taken as well. He tolerated procedure well. Today he is tolerating diet. He is still itchy. He is ready for discharge home and outpatient follow up. Discharge discussed with: patient, family - Time Spent with Patient Total time spent providing and/or coordinating discharge services: 38min - Discharge Medications Prescriptions: hydrOXYzine HCl [Hydroxyzine HCl] 25 mg PO BID PRN #30 tablet PRN Reason: Itching Home Medications: LORazepam [Ativan] 0.5 mg PO TID PRN 01/13/18 [History] Lisinopril [Zestril] 10 mg PO DAILY 01/13/18 [History] Pravastatin Sodium 10 mg PO DAILY 01/13/18 [History] hydrOXYzine HCl [Hydroxyzine HCl] 25 mg PO BID PRN #30 tablet 01/15/18 [Rx] Allergies/Adverse Reactions: 3 Allergy/AdvReac Type Severity Reaction Status Date / Time No Known Allergies Allergy Verified 01/13/18 13:53 Date of admission: 01/13/18 15:59 Primary care physician: PCP MELANY Consults: 01/13/18 16:59 Consult to Physician [CONS] Routine Consulting Provider: Buck Joseph Reason for Consult: obstructive jaundice Time Notified: 16:59 Call Completed: Yes Discharging clinician: Michael Hong Anticipated date of discharge: 01/15/18 - Constitutional Vitals: Temp Pulse Resp BP Pulse Ox 98.1 F 70 18 122/89 94 01/15/18 14:34 01/15/18 14:34 01/15/18 14:34 01/15/18 14:34 01/15/18 14:34 General appearance: Present: cooperative, A&O X 3, pleasant, answers questions appropriately - Head Head exam: Present: normocephalic - Eye Eye exam: Present: conjuntiva pink - ENT ENT exam: Present: mucous membranes dry - Respiratory Respiratory exam: Present: CTAB. Absent: rhonchi, wheezes - Cardiovascular Cardiovascular exam: Present: RRR. Absent: tachycardia - GI/Abdominal GI/Abdominal exam: Present: soft. Absent: tenderness - Extremities Exam Extremities exam: Present: warm. Absent: tenderness - Neurological Exam Neurological exam: Present: alert, oriented X3 - Skin Additional comments: Jaundice - Patient Status Disposition: Home, Self-Care Condition: Fair Functional capacity at discharge: independent ambulation Overall status at discharge: patient is progressing back to baseline - Discharge Instructions Follow Up With: NONE,PCP [Primary Care Provider] - - Diet and Activity Activity: increase activity as tolerated Diet: advance to your usual diet
[2018-01-16 06:52] LABS: Alpha 2 Globulin (PEP) 0.85 g/dL (0.48-1.05); Beta Globulin (PEP) 0.92 g/dL (0.48-1.10)
[2018-01-16 07:55] LABS: AFP Tumor Marker Non-Pregnant 2 ng/mL (0-9); ANA IgG by ELISA NONE DETECTED (None Detected); F-Actin (sm muscle) Ab IgG 16 Units (0-19); Immunoglobulin A (CELIAC) 246 mg/dL (68-408); Immunoglobulin G Subclass 1 353 mg/dL (240-1118); Myeloperoxidase Ab 0 AU/mL (0-19); Serine Protease-3 Antibody 0 AU/mL (0-19)
[2018-01-16 07:56] LABS: Immunoglobulin G Subclass 2 445 mg/dL (124-549); Immunoglobulin G Subclass 3 70 mg/dL (21-134); Immunoglobulin G Subclass 4 28 mg/dL (1-123)
[2018-01-16 08:03] LABS: IFE Reflexed NOT DONE
[2018-01-16 08:05] LABS: Tissue Transglutaminase IgA 0 U/mL (0-3)
[2018-01-18 23:37] LABS: A1A SZ Specimen WHOLE BLOOD; Alpha-1-Antitrypsin S Allele NEGATIVE; Alpha-1-Antitrypsin Z Allele NEGATIVE
[2018-01-19 07:19] LABS: Alpha-1-Antitrypsin 184 mg/dL (90-200)
== END 2018-01-15 15:57 | disposition home or self-care (01) ==
LOC: EMEROO 13:01 → 3ANU 13:01 → SUATTDRO 15:59 → 3ANU 16:25
PROVIDERS: ADMIT Hospitalist; ATTEND Internal Medicine
PROC: ENDOEUS (2018-01-14 11:30)